=== PATIENT | female | born 1965 | race Caucasian/White ===

== ENCOUNTER 2019-12-04 08:39 | Outpatient (CLI) | payer MEDICARE, MEDICAID, SELFPAY ==
[2019-12-04 09:38] LABS: Blood Urea Nitrogen 17 mg/dL (7-17); Carbon Dioxide 29 mmol/L (22-30); Chloride 103 mmol/L (98-107); Estimated Glomerular Filt Rate > 60; Glucose 174 mg/dL (65-105); Potassium 3.9 mmol/L (3.4-5.0); Sodium 139 mmol/L (137-145)
== END 2019-12-04 08:40 | disposition home or self-care (01) ==
PROVIDERS: Anesthesiology; PCP Internal Medicine Infectious Disease; Visit Provider Otolaryngology
DX: E11.9 Type 2 diabetes mellitus without complications (principal)
CPT/HCPCS: 36415; 80048

== ENCOUNTER 2019-12-08 00:17 | Outpatient (CLI) | payer MEDICARE, MEDICAID, SELFPAY ==
[2019-12-08 17:31] LABS: SARS-CoV-2 RNA PCR Negative
== END 2019-12-08 00:18 | disposition home or self-care (01) ==
LOC: ANHCOVIDDT 00:17
PROVIDERS: PCP Internal Medicine Infectious Disease; Visit Provider Otolaryngology
DX: Z01.812 Encounter for preprocedural laboratory examination (principal); Z20.828 Contact with and (suspected) exposure to other viral communicable diseases
CPT/HCPCS: 87635; C9803; U0003

== ENCOUNTER 2019-12-10 01:17 | Day surgery (SDC) | payer MEDICARE, MEDICAID, SELFPAY ==
[2019-09-29 11:17] VITALS: BMI 39.4
[2019-12-01 10:02] VITALS: BMI 39.4
--- NOTE | 2019-12-08 06:16 | PM.HPGS ---
History of Present Illness History of Present Illness Consent: Risks, benefits, and alternatives have been discussed and questions answered. Patient agrees to proceed with procedure. Chief complaint: Chronic Sinusitis Narrative: Heather Berry is a 54 year old female Review of Systems ENT: Reports nasal congestion, Reports nasal discharge, Reports nasal obstruction, Reports sinus pain and Reports sinus pressure Meds Home Medications and Allergies Home Medications Medication Instructions Recorded Confirmed Type amitriptyline 25 mg PO HS 09/29/19 12/01/19 History aspirin 81 mg PO DAILY 09/29/19 12/01/19 History betamethasone dipropionate 1 applic TOPICAL BID 09/29/19 12/01/19 History bupropion HCl 150 mg PO BID 09/29/19 12/01/19 History famotidine 20 mg PO DAILY 09/29/19 12/01/19 History fluoxetine 40 mg PO DAILY 09/29/19 12/01/19 History glimepiride 2 mg PO BID 09/29/19 12/01/19 History losartan 25 mg PO DAILY 09/29/19 12/01/19 History metformin 1,000 mg PO BID 09/29/19 12/01/19 History montelukast 10 mg PO DAILY 09/29/19 12/01/19 History pravastatin 80 mg PO DAILY 09/29/19 12/01/19 History pregabalin [Lyrica] 50 mg PO TID 09/29/19 12/01/19 History Allergies Allergy/AdvReac Type Severity Reaction Status Date / Time Sulfa (Sulfonamide Allergy Unknown HIVES, Verified 12/01/19 10:03 Antibiotics) ITCHING codeine AdvReac Itching Verified 12/01/19 10:03 morphine AdvReac HALLUCINATI Verified 12/01/19 10:03 ONS Exam HENMT: Head: normal to inspection Ears: external ears normal, TM normal on the right and TM normal on the left General nose exam: Normal external nose present, Abnormal mucous membranes and turbinates present, Abnormal nasal septum present, Nasal discharge present and Nasal polyp present Face and sinus: face symmetric and sinus tenderness Mouth: Yes tongue normal Teeth and gingiva: gingiva normal Throat: posterior oropharynx normal Assessment and Plan Additional Plan Plan is a functional endoscopic sinus surgery with CAT scan guidance
--- NOTE | 2019-12-10 06:33 | WPDHPUPDATE1 ---
History and Physical Update Update Date/Time: 12/10/19 06:33 History and Physical has been reviewed, including an updated exam of the patient. There are NO changes in the patient's condition. Risks, benefits, and alternatives have been discussed and questions answered. Patient agrees to proceed with procedure.
[2019-12-10 07:55] VITALS: BP 143/63; PULSE 75; RESP 18; TEMP 35.8; O2SAT 94
[2019-12-10] MEDS: LACTATED RINGERS 1,000 ML 30 ML IV CONT (08:10)
--- NOTE | 2019-12-10 08:43 | WPDANESEPP ---
Anes - Eval Pre Procedure Procedure: Operation Date: 12/10/19 08:[address] Guided Functional Endoscopic Sinus Surgery With Fusion - Luis Eduardo Mcallister MD Date/Time: 12/10/19 08:43 Surgeon: sailaja Pre Op Diagnosis: Chronic Sinusitis Patient Data Age: 54 Gender: F Height: 1.63 m Weight: 105.5 kg Last Vital Signs Temp 35.8 C L 12/10/19 07:55 Pulse 75 12/10/19 07:55 Resp 18 12/10/19 07:55 BP 143/63 H 12/10/19 07:55 Pulse Ox 94 12/10/19 07:55 Allergies Allergy/AdvReac Type Severity Reaction Status Date / Time Sulfa (Sulfonamide Allergy Unknown HIVES, Verified 12/01/19 10:03 Antibiotics) ITCHING codeine AdvReac Intermediate Itching Verified 12/10/19 08:02 morphine AdvReac Intermediate HALLUCINATI Verified 12/10/19 08:02 ONS Home Medications Medication Instructions Recorded Confirmed Type amitriptyline 25 mg PO HS 09/29/19 12/10/19 History aspirin 81 mg PO DAILY 09/29/19 12/10/19 History betamethasone dipropionate 1 applic TOPICAL BID 09/29/19 12/10/19 History bupropion HCl 150 mg PO BID 09/29/19 12/10/19 History famotidine 20 mg PO DAILY 09/29/19 12/10/19 History fluoxetine 40 mg PO DAILY 09/29/19 12/10/19 History glimepiride 2 mg PO BID 09/29/19 12/10/19 History losartan 25 mg PO DAILY 09/29/19 12/10/19 History metformin 1,000 mg PO BID 09/29/19 12/10/19 History montelukast 10 mg PO DAILY 09/29/19 12/10/19 History pravastatin 80 mg PO DAILY 09/29/19 12/10/19 History pregabalin [Lyrica] 50 mg PO TID 09/29/19 12/10/19 History Patient hx anesthesia problems: none Family hx anesthesia problems: none Exam Day of Procedure 12/10/19 08:43
--- NOTE | 2019-12-10 08:46 | WPDANESEPPF ---
Anes - Initial Pre Proc Eval Procedure: Operation Date: 12/10/19 08:[address] Guided Functional Endoscopic Sinus Surgery With Fusion - Luis Eduardo Mcallister MD Date/Time: 12/10/19 08:46 Surgeon: Luis Eduardo Mcallister MD Pre Op Diagnosis: Chronic Sinusitis Patient Data Age: 54 Gender: F Height: 5 ft 4 in Weight: 105.5 kg Last Vital Signs Temp 35.8 C L 12/10/19 07:55 Pulse 75 12/10/19 07:55 Resp 18 12/10/19 07:55 BP 143/63 H 12/10/19 07:55 Pulse Ox 94 12/10/19 07:55 Allergies Allergy/AdvReac Type Severity Reaction Status Date / Time Sulfa (Sulfonamide Allergy Unknown HIVES, Verified 12/01/19 10:03 Antibiotics) ITCHING codeine AdvReac Intermediate Itching Verified 12/10/19 08:02 morphine AdvReac Intermediate HALLUCINATI Verified 12/10/19 08:02 ONS Home Medications Medication Instructions Recorded Confirmed Type amitriptyline 25 mg PO HS 09/29/19 12/10/19 History aspirin 81 mg PO DAILY 09/29/19 12/10/19 History betamethasone dipropionate 1 applic TOPICAL BID 09/29/19 12/10/19 History bupropion HCl 150 mg PO BID 09/29/19 12/10/19 History famotidine 20 mg PO DAILY 09/29/19 12/10/19 History fluoxetine 40 mg PO DAILY 09/29/19 12/10/19 History glimepiride 2 mg PO BID 09/29/19 12/10/19 History losartan 25 mg PO DAILY 09/29/19 12/10/19 History metformin 1,000 mg PO BID 09/29/19 12/10/19 History montelukast 10 mg PO DAILY 09/29/19 12/10/19 History pravastatin 80 mg PO DAILY 09/29/19 12/10/19 History pregabalin [Lyrica] 50 mg PO TID 09/29/19 12/10/19 History Patient hx anesthesia problems: none Family hx anesthesia problems: none PMFSH Past Medical History Medical History (Updated 12/10/19 @ 08:46 by Justin Degroot MD) Diabetes HTN (hypertension) Obesity Surgical History Surgical History (Updated 12/10/19 @ 08:47 by Justin Degroot MD) H/O: hysterectomy Anes - Eval Final PreProcedure Day of Procedure 12/10/19 08:46 Patient weight: obese Heart: regular rate and rhythm Lungs: clear to auscultation Airway: Mallampati scale class 1 Neurological: alert and oriented Last oral intake: >/= 8 hours ASA classification: III Emergent: no Anesthetic plan: proceed Anesthesia type and monitoring: general ETT and standard monitoring Informed Consent: The patient's anesthetic plan and its attendant risks and benefits were discussed with the patient/family/POA. Questions were solicited and answers provided to the satisfaction of the patient/family/POA.
[2019-12-10] MEDS: LIDO 1%/EPINEPHRINE 1:100,000 20 ML VIAL INFILTRATE (08:57)
--- NOTE | 2019-12-10 09:09 | PM.PROC ---
Procedure Note - Detailed Date of procedure: 12/10/19 Pre-op diagnosis: Chronic Sinusitis Right sphenoid sinus Post-op diagnosis: same Procedure performed: Patient was prepped and draped in fashion typical anesthesia nose was packed with Afrin and cocaine impregnated cottonoids with 0 degree endoscope in a CAT scan guidance Jerry the right sphenoid sinus was identified with the straight suction the anterior face of the sphenoid was opened and a large opening created procedure was terminated patient awakened returned to recovery in good condition Anesthesia: GLMA Surgeon: Luis Eduardo Mcallister MD Estimated blood loss (mL): 5.0 Drains: No Packing: No Pathology: none sent Condition: stable Disposition: PACU
[2019-12-10 09:13] VITALS: BP 130/63; PULSE 88; RESP 20; TEMP 36.4; O2SAT 100
[2019-12-10 09:28] VITALS: BP 131/71; PULSE 78; RESP 20; O2SAT 100
[2019-12-10 09:28] LABS: Glucose Point of Care 147 (65-105)
[2019-12-10 09:41] VITALS: BP 125/67; PULSE 80; RESP 13; TEMP 36.6; O2SAT 96
[2019-12-10 09:55] VITALS: BP 149/69; PULSE 81
--- NOTE | 2019-12-10 09:59 | SUR.PHASEI ---
0926- DR. HARP BEDSIDE AND SAID PT CAN TAKE IBUPROFEN FOR PAIN AT HOME. UPDATED OUT PT NURSE.
[2019-12-10 10:25] VITALS: BP 134/71; PULSE 78
== END 2019-12-10 10:50 | disposition home or self-care (01) ==
PROVIDERS: PCP Internal Medicine Infectious Disease; Visit Provider Otolaryngology
PROC: (CPT 31287; principal; 2019-12-10 08:00)
DX: J32.9 Chronic sinusitis, unspecified (principal)
CPT/HCPCS: 31287; 61782; A9270; J0131; J0330; J1100; J2405; J2704; J3010; J7120

== ENCOUNTER 2022-06-26 10:45 | Outpatient (CLI) | payer MEDICARE, MEDICAID, SELFPAY | END 2022-06-26 10:46 | disposition home or self-care (01) | LOC: ANHAUDIO 10:46 | PROVIDERS: PCP Internal Medicine Infectious Disease; Visit Provider Internal Medicine Infectious Disease | DX: H90.3 Sensorineural hearing loss, bilateral (principal) | CPT/HCPCS: 92557; 92567 ==

== ENCOUNTER 2022-07-10 10:04 | Outpatient (CLI) | payer MEDICARE, MEDICAID, SELFPAY ==
--- NOTE | ~2022-07-10 | CT_ITS ---
EXAMINATION: CT sinus wo con DATE: 07/10/2022 10:21 INDICATION: Chronic sinusitis TECHNIQUE: Computed tomography (CT) of the paranasal sinuses was performed without intravenous contra st. The dose-length product (DLP) was 276.23 mGy-cm. Iterative reconstruction was used. COMPARISON: None FINDINGS: There is normal development and pneumatization of the paranasal sinuses. There is complete opacification of the right sphenoid sinus with associated wall thickening, consistent with chronic si nusitis. The right posterior ethmoidal air cells are opacified. There is mild mucosal thickening infe riorly in the maxillary sinuses. The frontal, sphenoid, ethmoid, and maxillary sinuses are clear. The bilateral ostiomeatal complexes are patent. Visualized soft tissues are unremarkable. IMPRESSION: 1. Chronic right sphenoid sinusitis, otherwise mild sinusitis of the right posterior ethmoidal air ce lls and maxillary sinuses. Reviewed, dictated and finalized at location [facility] IMPRESSION: 1. Chronic right sphenoid sinusitis, otherwise mild sinusitis of the right post erior ethmoidal air cells and maxillary sinuses.
== END 2022-07-10 10:05 | disposition home or self-care (01) ==
PROVIDERS: PCP Internal Medicine Infectious Disease; Visit Provider Otolaryngology
DX: J32.9 Chronic sinusitis, unspecified (principal); R51.9 Headache, unspecified; J34.3 Hypertrophy of nasal turbinates; J34.2 Deviated nasal septum
CPT/HCPCS: 70486

== ENCOUNTER 2022-09-17 12:05 | Outpatient (CLI) | payer MEDICARE, MEDICAID, SELFPAY ==
[2022-09-17 13:09] LABS: Anion Gap 8 mmol/L (8-16); Blood Urea Nitrogen 14 mg/dL (7-17); Carbon Dioxide 27 mmol/L (22-30); Chloride 104 mmol/L (98-107); Estimated Glomerular Filt Rate > 60; Glucose 130 mg/dL (65-110); Potassium 4.7 mmol/L (3.4-5.0); Sodium 139 mmol/L (137-145)
== END 2022-09-17 12:06 | disposition home or self-care (01) ==
LOC: ANHSURGERY 12:11
PROVIDERS: Anesthesiology; PCP Internal Medicine Infectious Disease; Visit Provider Otolaryngology
DX: E11.9 Type 2 diabetes mellitus without complications (principal); Z01.818 Encounter for other preprocedural examination
CPT/HCPCS: 36415; 80048

== ENCOUNTER 2022-09-18 01:17 | Day surgery (SDC) | payer MEDICARE, MEDICAID, SELFPAY ==
[2022-09-10 13:57] VITALS: BMI 38.4
--- NOTE | 2022-09-10 14:07 | PC.NURSE ---
Report to the Outpatient Waiting Room, entrance under the green pavilion located off [facility], at time 11:00 on date 09/18/22. Planned Procedure Time: 1:00. Time changes happen often and if your time is changed the preop area will call you the afternoon before. - You and your visitor will be asked to self-screen and do not enter if you have any COVID symptoms. - Only one visitor is requested with a max of two and NO children visitors are allowed at this time. - The patient visitor may be requested to leave or wait in car when not with patient due to distancing restrictions. - A mask is optional within the hospital at this time. Patients may have clear liquids (water, carbonated beverages, clear teas, apple juice) until 3 hours prior to surgery (10:00) with a maximum of 20 ounces. - No food from midnight until time of surgery Take the following medications with a SIP of water the morning of surgery: BUPROPION, FLUOXETINE DO NOT STOP ANY OF YOUR OTHER PRESCRIPTION MEDICATIONS PRIOR TO SURGERY EXCEPT THE FOLLOWING Medications to discontinue per physician: ASPIRIN Date to take last dose: 09/[address] HAIRSTON (PER PT) Please no make-up, nail japanese, hairspray, perfume, deodorant, or body powder the day of surgery. No jewelry (including any body piercings) or valuables the day of surgery, leave them at home. Please take a shower or bath the night before, or the morning of, surgery with an antibacterial soap. Wear comfortable, loose fitting clothing. - Jewelry must be removed prior to entering the operating room. Rings and piercings that are not removed may be cut off. - The hospital will not accept responsibility for valuables. - Please leave all valuables, including medications, at home the day of surgery. If you are going home after surgery, a licensed emt driver must drive you home. - NO public transportation without another adult if you receive anesthesia. - We recommend that an adult stay with you for 24 hours following discharge. - We also recommend that you do not drive, make important decision, drink alcoholic beverages, or take any drugs that were not prescribed by your health care provider for at least 24 hours after your discharge time. Follow any additional instructions given to you from your surgeon. If you or anyone in your household have experienced Covid symptoms in the past week, please notify your surgeon or the nurse liaison at the phone number below for possible testing. Telephone instructions given to COLLIN ANGEL and asked if any additional questions and then verbalized understanding. Patient advised to call surgeon office or pre surgery nurse liaison [phone] if any additional questions.
--- NOTE | 2022-09-17 14:35 | WPDANESEPPF ---
Anes - Initial Pre Proc Eval Procedure: Operation Date: 09/18/22 13:00 Proposed Procedures p Septoplasty, - Paul Yanez MD s Image Guided Bilateral Endoscopic Maxillary Antrostomy without Tissue Removal, Left Anterior Ethmoidectomy, Right Total Ethmoidectomy, Right Sphenoidotomy With Tissue Removal - Paul Yanez MD Date/Time: 09/17/22 14:35 Surgeon: Paul Yanez MD Pre Op Diagnosis: chronic sinusitis, septal deviation Patient Data Age: 57 Gender: F Height: 1.63 m Weight: 101.6 kg Allergies Allergy/AdvReac Type Severity Reaction Status Date / Time Sulfa (Sulfonamide Allergy Unknown HIVES, Verified 09/10/22 13:51 Antibiotics) ITCHING lisinopril Allergy Difficulty Verified 09/10/22 13:51 Breathing codeine AdvReac Intermediate Itching Verified 09/10/22 13:51 morphine AdvReac Intermediate HALLUCINATI Verified 09/10/22 13:51 ONS Home Medications Medication Instructions Recorded Confirmed Type amitriptyline 25 mg tablet 25 mg PO HS 09/29/19 09/10/22 History aspirin 81 mg tablet,delayed 81 mg PO DAILY 09/29/19 09/10/22 History release fluoxetine 40 mg capsule 40 mg PO DAILY 09/29/19 09/10/22 History glimepiride 2 mg tablet 2 mg PO BID 09/29/19 09/10/22 History losartan 25 mg tablet 25 mg PO DAILY 09/29/19 09/10/22 History metformin 500 mg tablet,extended 1,000 mg PO BID 09/29/19 09/10/22 History release 24 hr montelukast 10 mg tablet 10 mg PO DAILY 09/29/19 09/10/22 History pravastatin 80 mg tablet 80 mg PO DAILY 09/29/19 09/10/22 History omeprazole 40 mg capsule,delayed 40 mg PO DAILY 04/26/20 09/10/22 History release colestipol 1 gram tablet 1 g PO BID 05/23/22 09/10/22 History fluoxetine 20 mg capsule 20 mg PO DAILY 05/23/22 09/10/22 History fluticasone propionate 50 1 - 2 spray intranasal BID #16 mL 05/23/22 09/10/22 Rx mcg/actuation nasal spray,suspension (Flonase Allergy Relief) bupropion HCl 200 mg tablet,12 hr 200 mg PO DAILY 09/10/22 09/10/22 History sustained-release empagliflozin 10 mg tablet 10 mg PO DAILY 09/10/22 09/10/22 History (Jardiance) sucralfate 1 gram tablet 1 g PO BID 09/10/22 09/10/22 History Patient hx anesthesia problems: none Family hx anesthesia problems: none Results Review: All pre-operative results and documents have been reviewed as part of the pre-operative evaluation. [facility] Past Medical History Medical History (Updated 09/17/22 @ 14:37 by Carl Lagunas MD) Asthma Bipolar 1 disorder Diabetes HTN (hypertension) Hypercholesterolemia Hypertrophy of both inferior nasal turbinates Obesity CINTIA on CPAP Surgical History Surgical History (Updated 09/17/22 @ 14:37 by Carl Lagunas MD) H/O spinal fusion H/O: hysterectomy Social History Social History Smoking packs per day: 1.5 Smoking cigarettes per day: 30.0 Years smoked: 35 Smoking pack-years: 52.50 Smoking status: Former smoker Tobacco type: cigarettes Second hand tobacco smoke exposure: Yes Smoking end date: 07/15/07 Alcohol intake: never Substance use: never Substance use type: does not use Living arrangements: alone Spiritual care concerns: No Anes - Eval Final PreProcedure Day of Procedure 09/17/22 14:35 Patient weight: obese Heart: regular rate and rhythm Lungs: clear to auscultation Airway: Mallampati scale class 1 Neurological: alert and oriented Last oral intake: >/= 8 hours ASA classification: III Emergent: no Anesthetic plan: proceed Anesthesia type and monitoring: general ETT and standard monitoring Results Review: All pre-operative results and documents have been reviewed as part of the pre-operative evaluation. Informed Consent: The patient's anesthetic plan and its attendant risks and benefits were discussed with the patient/family/POA. Questions were solicited and answers provided to the satisfaction of the patient/family/POA.
--- NOTE | 2022-09-17 18:42 | PM.IMHP ---
H&P: HPI History of Present Illness Date/Time: 09/17/22 18:42 Chief Complaint: fungal sinusitis chronic sinusitis Narrative: planned surgical procedure Review of Systems Review of Systems: All systems reviewed & are unremarkable except as noted in HPI and below [facility] Past Medical History Medical History (Updated 09/17/22 @ 14:37 by Carl Lagunas MD) Asthma Bipolar 1 disorder Diabetes HTN (hypertension) Hypercholesterolemia Hypertrophy of both inferior nasal turbinates Obesity CINTIA on CPAP Surgical History Surgical History (Updated 09/17/22 @ 14:37 by Carl Lagunas MD) H/O spinal fusion H/O: hysterectomy Social History Social History Smoking packs per day: 1.5 Smoking cigarettes per day: 30.0 Years smoked: 35 Smoking pack-years: 52.50 Smoking status: Former smoker Tobacco type: cigarettes Second hand tobacco smoke exposure: Yes Smoking end date: 07/15/07 Alcohol intake: never Substance use: never Substance use type: does not use Living arrangements: alone Spiritual care concerns: No Meds Home Medications and Allergies Home Medications Medication Instructions Recorded Confirmed Type amitriptyline 25 mg tablet 25 mg PO HS 09/29/19 09/10/22 History aspirin 81 mg tablet,delayed 81 mg PO DAILY 09/29/19 09/10/22 History release fluoxetine 40 mg capsule 40 mg PO DAILY 09/29/19 09/10/22 History glimepiride 2 mg tablet 2 mg PO BID 09/29/19 09/10/22 History losartan 25 mg tablet 25 mg PO DAILY 09/29/19 09/10/22 History metformin 500 mg tablet,extended 1,000 mg PO BID 09/29/19 09/10/22 History release 24 hr montelukast 10 mg tablet 10 mg PO DAILY 09/29/19 09/10/22 History pravastatin 80 mg tablet 80 mg PO DAILY 09/29/19 09/10/22 History omeprazole 40 mg capsule,delayed 40 mg PO DAILY 04/26/20 09/10/22 History release colestipol 1 gram tablet 1 g PO BID 05/23/22 09/10/22 History fluoxetine 20 mg capsule 20 mg PO DAILY 05/23/22 09/10/22 History fluticasone propionate 50 1 - 2 spray intranasal BID #16 mL 05/23/22 09/10/22 Rx mcg/actuation nasal spray,suspension (Flonase Allergy Relief) bupropion HCl 200 mg tablet,12 hr 200 mg PO DAILY 09/10/22 09/10/22 History sustained-release empagliflozin 10 mg tablet 10 mg PO DAILY 09/10/22 09/10/22 History (Jardiance) sucralfate 1 gram tablet 1 g PO BID 09/10/22 09/10/22 History Allergies Allergy/AdvReac Type Severity Reaction Status Date / Time Sulfa (Sulfonamide Allergy Unknown HIVES, Verified 09/10/22 13:51 Antibiotics) ITCHING lisinopril Allergy Difficulty Verified 09/10/22 13:51 Breathing codeine AdvReac Intermediate Itching Verified 09/10/22 13:51 morphine AdvReac Intermediate HALLUCINATI Verified 09/10/22 13:51 ONS Exam Narrative: septal deviation Assessment and Plan Assessment and plan (1) Nasal septal deviation: Code(s): J34.2 - Deviated nasal septum Status: Acute Assessment and Plan: ?image guided endoscopic bilateral maxillary antrostomy left anterior ethmoidectomy right total ethmoidectomy right sphenoidotomy with tissue removed possible septoplasty for access risks discussed including bleeding infection CSF leak brain brain damage blindness change in vision damage to any structure at all the human body damage to any structure above the clavicles damage to any structure by anesthesia numbness change in taste change in smell any changed in any sense anything is possible with surgery. (2) Headache: Code(s): R51.9 - Headache, unspecified Status: Acute (3) Chronic sinusitis: Qualifiers: Sinusitis location: unspecified location Qualified Code(s): J32.9 - Chronic sinusitis, unspecified Code(s): J32.9 - Chronic sinusitis, unspecified Status: Acute
[2022-09-18] VITALS (8 sets, daily range): BP systolic 100–145; BP diastolic 70–88; PULSE 76–90; RESP 12–20; TEMP 36.6–36.9; O2SAT 95–100
--- NOTE | 2022-09-18 07:16 | WPDHPUPDATE1 ---
History and Physical Update Update Date/Time: 09/18/22 07:16 History and Physical has been reviewed, including an updated exam of the patient. There are NO changes in the patient's condition. Risks, benefits, and alternatives have been discussed and questions answered. Patient agrees to proceed with procedure.
[2022-09-18] MEDS: LACTATED RINGERS 1,000 ML 30 ML IV CONT (11:30)
[2022-09-18 11:45] LABS: Glucose Point of Care 98 mg/dl (65-105)
[2022-09-18] MEDS: ceFAZolin 2 GM/D5W 50 ML 2 GM/50 ML BAG IVPB (13:18)
[2022-09-18] MEDS: OXYMETAZOLINE HCL 0.05% NAS 15 ML BTL (*BKC) 1 SPRAY NASAL (13:30)
[2022-09-18] MEDS: TRIAMCINOLONE ACET INJ SUSP 50 MG/5 ML VIAL 10 MG XX (14:25)
[2022-09-18] MEDS: LIDO 1%/EPINEPHRINE 1:100,000 20 ML VIAL INFILTRATE (14:49)
[2022-09-18] MEDS: MUPIROCIN 2% OINT 22 GM TUBE 1 APPLIC EACH NARE (14:51)
[2022-09-18 15:26] LABS: Glucose Point of Care 141 mg/dl (65-105)
[2022-09-18] MEDS: fentaNYL CITRATE INJ (*CRX) 100 MCG/2 ML VIAL 25 MCG IV PUSH ×3 (15:32→15:51)
--- NOTE | 2022-09-18 15:33 | W.PM.PROC2 ---
Procedure Note - Detailed Date of Procedure 09/18/22 Pre-op Diagnosis chronic sinusitis, septal deviationFungal sinusitis Post-op Diagnosis Same Procedure Performed endoscopic assisted septoplasty right-sided image guided endoscopic maxillary antrostomy total ethmoidectomy sphenoidotomy with tissue removal left-sided image guided endoscopic maxillary antrostomy anterior ethmoidectomy Surgeon Paul Yanez MD Anesthesia General Indications see above Findings polypoid edema all the aforementioned sinuses severely diseased right sided posterior ethmoids and sphenoid sinus sphenoid was completely full of fungal debris. Description of Procedure Patient identified consent verified in preop. Patient brought operating. Time-out performed. General anesthesia induced endotracheal tube secured the airway. Image guidance initiated and confirmed. Patient prepped draped position 2nd time-out performed. Afrin-soaked pledgets placed allowed to sit for 5 minutes then removed. High septal deviation obstructing the operative sites. 10 cc 1% lidocaine 1 100,000 parts epinephrine injected in the bilateral nasal septum. Rios incision made left-sided. Left nasal septal flap elevated septum crossed over with osteotome right nasal septal flap elevated. Deviated septum removed with the blade osteotome Aliza forceps and [place] forceps Rios incision closed with 5 interrupted fast gut sutures. Left-sided sinus surgery maxillary antrostomy performed with image guidance backbiter straight through cut as well as Kerrison and microdebrider ethmoids performed with anterior ethmoidectomy performed with Kerrison microdebrider straight through cut image guidance was utilized throughout the procedure. Right-sided maxillary antrostomy performed with backbiter straight through cut microdebrider ethmoids performed with microdebrider straight through cut Kerrison posterior ethmoid same. Sphenoidotomy located with image guidance copious amounts of fungal debris located in it the os was widened the sphenoid punch and Kerrison all the fungal debris irrigated out. Severely diseased polypoid mucosa. Afrin-soaked pledgets placed bilaterally bilateral nasal passages suction to the posterior choana. Nova pack placed bilaterally on the right side it was infiltrated with Kenalog patient tolerated the procedure very well Hill splints placed sutured anteriorly using 3-0 mattressed suture. Estimated Blood Loss 75 Drains No Packing Yes (Novapak) Pathology None sent Complications No immediate complications Condition Stable Disposition PACU [facility] Billing Surgery - Charge Forward: Surgery Billing
== END 2022-09-18 16:55 | disposition home or self-care (01) ==
PROVIDERS: PCP Internal Medicine Infectious Disease; Visit Provider Otolaryngology
PROC: (CPT 30520; principal; 2022-09-18 13:00)
PROC: (CPT 61782; 2022-09-18 13:00)
DX: J32.9 Chronic sinusitis, unspecified (principal); J34.2 Deviated nasal septum; B48.8 Other specified mycoses; J33.8 Other polyp of sinus; R51.9 Headache, unspecified; J45.909 Unspecified asthma, uncomplicated; F31.9 Bipolar disorder, unspecified; E11.9 Type 2 diabetes mellitus without complications; I10 Essential (primary) hypertension; E78.00 Pure hypercholesterolemia, unspecified; G47.33 Obstructive sleep apnea (adult) (pediatric); E66.9 Obesity, unspecified; Z68.34 Body mass index [BMI] 34.0-34.9, adult; Z98.1 Arthrodesis status; Z87.891 Personal history of nicotine dependence; Z79.82 Long term (current) use of aspirin; Z79.84 Long term (current) use of oral hypoglycemic drugs
CPT/HCPCS: 61782; 31288; 31256; 31254; 30520; 82948; A9270; J0690; J1100; J2250; J2370; J2704; J2710; J3010; J3301; J7120

== ENCOUNTER 2023-06-04 11:15 | Outpatient (CLI) | payer MEDICARE, MEDICAID, SELFPAY ==
[2023-06-04 11:45] LABS: Basophils Percent Auto 0.4 % (0.2-1.2); Eosinophils Absolute Auto 0.2 K/mm3 (0-0.3); Eosinophils Percent Auto 2.1 % (0-4.4); Hemoglobin 10.2 g/dL (12.0-15.0); Immature Granulocyte Absolute 0.06 K/mm3 (0.00-0.031); Immature Granulocyte Percent A 0.8 % (0-0.5); Lymphocytes Absolute Auto 1.29 K/mm3 (0.9-3.2); Lymphocytes Percent Auto 16.8 % (18.3-44.2); Mean Corpuscular Hemoglobin 22.4 pg (26-34); Mean Corpuscular Volume 74.6 fl (80-100); Mean Platelet Volume 8.9 fl (7.4-10.4); Monocytes Absolute Auto 0.5 K/mm3 (0.1-0.6); Monocytes Percent Auto 6.3 % (2.6-8.5); Neutrophils Absolute Auto 5.6 K/mm3 (1.3-6.7); Neutrophils Percent Auto 73.6 % (45.5-73.1); Platelet Count Result 306 k/mm3 (150-375); Red Blood Count 4.56 M/mm3 (4.2-5.4); Red Cell Distribution Width 17.2 % (11.5-14.5); White Blood Count 7.7 K/mm3 (4.5-10.0)
[2023-06-04 11:55] LABS: Anisocytosis 1+ (NORMAL); Microcytosis 1+ (NORMAL); Ovalocytes 1+ (NORMAL); Platelet Estimate Adequate (Adequate); Poikilocytosis 1+ (NORMAL); Schistocytes None Seen (NORMAL)
[2023-06-04 17:20] LABS: Iron 28 ug/dL (37-170)
[2023-06-04 17:30] LABS: Percent Iron Saturation 7 % (20-50)
[2023-06-04 17:38] LABS: Alanine Aminotransferase 18 U/L (6-35); Alkaline Phosphatase 83 U/L (38-126); Anion Gap 15 mmol/L (8-16); Aspartate Amino Transferase 17 U/L (14-36); Bilirubin,Total 0.5 mg/dL (0.2-1.3); Blood Urea Nitrogen 12 mg/dL (7-17); Calcium 9.3 mg/dL (8.4-10.2); Carbon Dioxide 24 mmol/L (22-30); Chloride 103 mmol/L (98-107); Estimated Glomerular Filt Rate > 60; Glucose 115 mg/dL (65-110); Potassium 4.2 mmol/L (3.4-5.0); Sodium 142 mmol/L (137-145)
[2023-06-04 17:54] LABS: Ferritin 5.27 ng/mL (11.1-264)
[2023-06-04 18:40] LABS: Folic Acid 11.5 ng/mL (2.76->20)
[2023-06-08 01:37] LABS: Methylmalonic Acid 142 nmol/L (87-318)
[2023-06-08 18:41] LABS: Soluble Transferrin Receptor 2.59 mg/L (0.76-1.76)
== END 2023-06-04 11:16 | disposition home or self-care (01) ==
PROVIDERS: Nurse Practitioner Family; PCP Internal Medicine Infectious Disease; Visit Provider Internal Medicine Hematology & Oncology
DX: D50.8 Other iron deficiency anemias (principal)
CPT/HCPCS: 36415; 80053; 82607; 82728; 82746; 83540; 83550; 83921; 84238; 85025